=== PATIENT | male | born 1940 | race Caucasian/White ===

== ENCOUNTER → 2023-01-25 | Day surgery (SDC) | payer OTHER ==
[2023-01-23 12:15] VITALS: BMI 31.4
[~2023-01-25] MED LIST: BSS (NA/CA/MG/K) BALANCED SALT SOLUTION OPHTH SOLN 15 ML BOTTLE ONE; CARBACHOL 0.01% INTRA-OCULAR 1.5 ML VIAL ONE; LIDOCAINE 1% P/F 10 MG/ML VIAL ONE; MIDAZOLAM HCL 2 MG/2 ML SINGLE DOSE VIAL ONE; NEO/POLYMYX B SULF/DEXAMETH OPHTHALMIC 5ML BOTTLE ONE; TETRACAINE 0.5% OPHTH SOLN 2 ML BOTTLE ONE
[2023-01-25] MEDS: CYCLOPENTOLATE 2% OPHTH SOLN 2 ML BOTTLE ONE ×3 (11:10→11:20)
[2023-01-25] MEDS: CIPROFLOXACIN HCL 0.3% OPHTH 2.5ML BOTTLE ONE ×3 (11:10→11:20)
[2023-01-25] MEDS: TROPICAMIDE 1% OPHTH SOLN 15 ML BOTTLE ONE ×3 (11:10→11:20)
[2023-01-25] MEDS: PHENYLEPHRINE 2.5% OPTHALMIC DROP 2ML BOTTLE ONE ×3 (11:10→11:20)
[2023-01-25 11:19] VITALS: PULSE 58; RESP 16
[2023-01-25 13:04] VITALS: BP 140/70; TEMP 96.9
== END | disposition home or self-care (01) ==
LOC: FASU 10:34
PROVIDERS: ATTEND Ophthalmology
PROC: 08RJ3JZ Replacement of Right Lens with Synthetic Substitute, Percutaneous Approach (ICD-10-PCS; principal; 2023-01-25 12:04)
DX: H26.8 Other specified cataract (principal)
CPT/HCPCS: 66984; V2632; 82962

== ENCOUNTER 2023-08-02 09:52 | Day surgery (SDC) | payer OTHER ==
[2023-07-27 10:41] VITALS: BMI 31.4
[2023-08-02] MEDS ORDERED: CYCLOPENTOLATE 2% OPHTH SOLN 2 ML BOTTLE ONE (10:02)
[2023-08-02] MEDS ORDERED: PHENYLEPHRINE 2.5% OPTHALMIC DROP 2ML BOTTLE ONE (10:02)
[2023-08-02] MEDS ORDERED: CIPROFLOXACIN 0.3% EYE DROPS 5 ML BOTTLE ONE (10:02)
[2023-08-02] MEDS ORDERED: TROPICAMIDE 1% OPHTH SOLN 15 ML BOTTLE ONE (10:02)
[2023-08-02] MEDS ORDERED: MIDAZOLAM HCL 2 MG/2 ML SINGLE DOSE VIAL ONE (10:03)
[2023-08-02] MEDS: TROPICAMIDE 1% OPHTH SOLN 15 ML BOTTLE OS ONE ×3 (10:20→10:30)
[2023-08-02] MEDS: CIPROFLOXACIN 0.3% EYE DROPS 5 ML BOTTLE OS ONE ×3 (10:20→10:30)
[2023-08-02] MEDS: PHENYLEPHRINE 2.5% OPHTH SOLN 15 ML BOTTLE OS ONE ×3 (10:20→10:30)
[2023-08-02] MEDS: CYCLOPENTOLATE 2% OPHTH SOLN 2 ML BOTTLE OS ONE ×3 (10:20→10:30)
[2023-08-02] MEDS ORDERED: CARBACHOL 0.01% INTRA-OCULAR 1.5 ML VIAL ONE (10:24)
[2023-08-02] MEDS ORDERED: TETRACAINE 0.5% OPHTH SOLN 2 ML BOTTLE ONE (10:24)
[2023-08-02] MEDS ORDERED: NEO/POLYMYX B SULF/DEXAMETH OPHTHALMIC 5ML BOTTLE ONE (10:24)
[2023-08-02] MEDS ORDERED: BSS (NA/CA/MG/K) BALANCED SALT SOLUTION OPHTH SOLN 15 ML BOTTLE ONE (10:24)
[2023-08-02] MEDS ORDERED: LIDOCAINE 1% P/F 10 MG/ML VIAL ONE (10:24)
[2023-08-02 12:34] VITALS: BP 152/66; PULSE 54; RESP 16; TEMP 97.3
[2023-08-02] MEDS ORDERED: PHENYLEPHRINE/KETOROLAC 4 ML VIAL IO ONE (12:58)
== END 2023-08-02 12:59 | disposition home or self-care (01) ==
LOC: FASU 09:52
PROVIDERS: ATTEND Ophthalmology
PROC: 08RK3JZ Replacement of Left Lens with Synthetic Substitute, Percutaneous Approach (ICD-10-PCS; principal; 2023-08-02 12:07)
DX: H26.8 Other specified cataract (principal)
CPT/HCPCS: 66984; V2632; 82962; J1097